=== PATIENT | female | born 2000 | race Caucasian/White ===

== ENCOUNTER 2024-04-13 13:53 | Emergency (ER) | payer SELFPAY ==
--- NOTE | ~2024-04-13 | US_ITS ---
EXAMINATION: US transvaginal DATE: 04/13/2024 17:09 INDICATION: LLQ pain, rule out torsion TECHNIQUE: Multiple transabdominal and endovaginal sonographic images of the pelvis were obtained. COMPARISON: None. FINDINGS: Uterus: 6.4 x 4.0 x 5.0 cm. Anteverted, retroflexed. Small volume fluid in the endometrial cavity. En dometrial complex measures 6 mm. Right Ovary: 5.0 x 3.4 x 2.4 cm. Ovarian volume 20.8 mL. Mild stromal echogenicity. Vascular flow is present. Multiple small peripheral follicles. Left Ovary: 4.9 x 2.3 x 2.5 cm. Ovarian volume 14.3 mL. Normal stroma. Vascular flow is present. Mult iple small peripheral follicles. There is no free fluid in the pelvis. IMPRESSION: Bilateral ovarian morphology most likely representing PCOS. Reviewed, dictated and finalized at location K. O INTERFERENCE INVESTIGATOR
[2024-04-13 13:55] VITALS: BP 149/93; PULSE 75; RESP 18; TEMP 36.4; O2SAT 100
--- NOTE | 2024-04-13 16:12 | ED_ITS ---
HPI - General Adult General Chief complaint: Unspecified Stated complaint: ovarian cyst rupture /Vomiting Time Seen by Provider: 04/13/24 16:01 Source: patient Mode of arrival: ambulatory Limitations: no limitations History of Present Illness HPI narrative: This is a 23-year-old female who presents to the ED for chief complaint of left lower abdominal pain beginning earlier today. patient reports it feels like an ovarian cyst rupture. She has history of PCOS and has had cyst rupture in the past. Reports she is still having 7/10 abdominal pain currently. Located in the left lower quadrant and does not radiate. States that she was discharged from the hospital last month after being treated patient for PID. Denies any further issues with vaginal discharge. She does state that she has had her 2nd period in 2 weeks. endorses nausea and vomiting but no diarrhea. Denies fevers, chills, Back pain, flank pain, urinary symptoms, chest pain, shortness of breath, syncope. Related Data Allergies Allergy/AdvReac Type Severity Reaction Status Date / Time sertraline [From Zoloft] AdvReac Gastrointestinal Verified 04/13/24 13:59 Upset Review of Systems Review of Systems: All systems as dictated in HPI Exam Narrative: GENERAL: Well-appearing, well-nourished, and in no acute distress. HEAD: Normocephalic, atraumatic. EYES: PERRLA and EOMI. ENT: Nares clear, no rhinorrhea or epistaxis. Mucous membranes moist. Oropharynx without tonsillar hypertrophy exudate or other lesions. NECK: Supple. No adenopathy or masses. CHEST: No respiratory distress. Clear to auscultation. No wheezes rales or rhonchi HEART: Regular rate and rhythm. No murmur heard. Normal peripheral pulses. ABDOMEN: Left lower quadrant tenderness present. Soft, nontender, nondistended, normal active bowel sounds. Negative flank tenderness bilat MSK: Normal range of motion. No edema. SKIN: Warm, dry, no rash. NEURO: Alert and oriented x4. No focal deficits. PSYCH: Normal mood and affect. Course Vital Signs Vital signs: Vital Signs Temperature 97.6 F 04/13/24 13:55 Pulse Rate 75 04/13/24 13:55 Respiratory Rate 18 04/13/24 13:55 Blood Pressure 149/93 H 04/13/24 13:55 Pulse Oximetry 100 04/13/24 13:55 Oxygen Delivery Room Air 04/13/24 13:55 Temperature 97.6 F 04/13/24 13:55 Pulse Rate 75 04/13/24 13:55 Respiratory Rate 17 04/13/24 17:16 Blood Pressure 149/93 H 04/13/24 13:55 Pulse Oximetry 100 04/13/24 17:16 Oxygen Delivery Room Air 04/13/24 13:55 Medical Decision Making MDM Narrative Medical decision making narrative: This is a 23-year-old female who presents to the ED for chief complaint of left lower quadrant abdominal pain onset this morning. Vitals are normal. Exam shows tenderness to the left lower quadrant but otherwise nontender. No flank tenderness. Lab work Shows mildly elevated white count of 11.5. CMP unremarkable. Urinalysis shows 2+ blood, 1+ leuks and 6-10 whites but clinically presentation is not consistent with UTI. Culture will be pending. History of PCOS and ovarian cyst rupture in the past. Ultrasound ordered to rule out torsion. Pelvic ultrasound: IMPRESSION: Bilateral ovarian morphology most likely representing PCOS. She improved with Zofran morphine here. Presentation consistent with ovarian cystic pain Patient will be discharged in stable condition. Supportive measures discussed and return precautions given. Patient is understanding and agreeable with plan for discharge with PCP follow-up. Vital Signs Vital Signs: Vital Signs Temperature 97.6 F 04/13/24 13:55 Pulse Rate 75 04/13/24 13:55 Respiratory Rate 18 04/13/24 13:55 Blood Pressure 149/93 H 04/13/24 13:55 Pulse Oximetry 100 04/13/24 13:55 Oxygen Delivery Room Air 04/13/24 13:55 Temperature 97.6 F 04/13/24 13:55 Pulse Rate 75 04/13/24 13:55 Respiratory Rate 17 04/13/24 17:16 Blood Pressure 149/93 H 04/13/24 13:55 Pulse Oximetry 100 04/13/24 17:16 Oxygen Delivery Room Air 04/13/24 13:55 Lab Data 04/13/24 17:26 04/13/24 17:26 Labs: Lab Results 04/13/24 Range/Units 17:26 WBC 11.5 H (4.5-10.0) K/mm3 RBC 4.35 (4.2-5.4) M/mm3 Hgb 12.4 (12.0-15.0) g/dL Hct 38.3 (37.0-47.0) % MCV 88.0 (80-100) fl MCH 28.5 (26-34) pg MCHC 32.4 (32-36) g/dl RDW 13.9 (11.5-14.5) % Plt Count 342 (150-375) k/mm3 MPV 9.4 (7.4-10.4) fl Immature Gran % (Auto) 0.3 (0-0.5) % Neut % (Auto) 59.6 (45.5-73.1) % Lymph % (Auto) 33.9 (18.3-44.2) % [place] % (Auto) 5.1 (2.6-8.5) % Eos % (Auto) 0.8 (0-4.4) % Baso % (Auto) 0.3 (0.2-1.2) % Lymph # (Auto) 3.89 H (0.9-3.2) K/mm3 [place] # (Auto) 0.6 (0.1-0.6) K/mm3 Eos # (Auto) 0.1 (0-0.3) K/mm3 Baso # (Auto) 0.0 (0.0-0.1) K/mm3 Abs Immat Gran (auto) 0.04 H (0.00-0.031) K/mm3 Absolute Neuts (auto) 6.9 H (1.3-6.7) K/mm3 Absolute Nucleated RBC 0.000 (0.0-0.012) K/mm3 Nucleated RBC % 0.0 (0.0-0.2) % Sodium 141 (137-145) mmol/L Potassium 4.0 (3.4-5.0) mmol/L Chloride 106 (98-107) mmol/L Carbon Dioxide 28 (22-30) mmol/L Anion Gap 7 (4-12) mmol/L BUN 8 (7-17) mg/dL Creatinine 0.70 (0.7-1.0) mg/dL Estim Creat Clear Calc 176 ml/min Estimated GFR > 60 (59 - ) Glucose 80 (65-110) mg/dL Calcium 9.3 (8.4-10.2) mg/dL Total Bilirubin 0.6 (0.2-1.3) mg/dL AST 25 (14-36) U/L ALT 28 (6-35) U/L Alkaline Phosphatase 82 (38-126) U/L Total Protein 8.0 (6.3-8.2) g/dL Albumin 4.4 (3.5-5.1) g/dL Lipase 44 (23-300) U/L Urine Color Yellow (Yellow) Urine Appearance Clear (Clear) Urine pH 8.0 (5.0-9.0) Ur Specific [place] 1.007 (1.001-1.035) Urine Protein Negative (Negative) mg/dL Urine Glucose (UA) Negative (Negative) mg/dL Urine Ketones Negative (Negative) mg/dL Ur Blood (Man) 2+ H (Negative) Urine Nitrate Negative (Negative) Urine Bilirubin Negative (Negative) Urine Urobilinogen 0.2 (<2.0) mg/dL Leukocyte Esterase Rfl 1+ H (Negative) ADY/UL Urine RBC 0-2 (0-2) /hpf Urine WBC 6-10 H (0-3) /hpf Ur Squamous Epith Cells Few (Few) /hpf Urine Bacteria Rare /hpf Urine Casts 0-2 Discharge Plan Discharge Clinical Impression: Abdominal pain, LLQ Patient Disposition: Home, Self-Care Condition: Stable Instructions: Antibiotic Form Additional Instructions: Exam and imaging today are reassuring. Please follow-up with your doctor as scheduled. Use regular Tylenol and ibuprofen every 4-6 hours as needed for pain control. If you have any new or worsening symptoms please return to the ER for further evaluation. Follow-up/Referrals: UNKNOWN,DOCTOR [Non-Staff] - Time of Disposition: 18:01
[2024-04-13 17:16] VITALS: RESP 17; O2SAT 100
[2024-04-13 17:38] LABS: Basophils Percent Auto 0.3 % (0.2-1.2); Eosinophils Absolute Auto 0.1 K/mm3 (0-0.3); Eosinophils Percent Auto 0.8 % (0-4.4); Hematocrit 38.3 % (37.0-47.0); Hemoglobin 12.4 g/dL (12.0-15.0); Immature Granulocyte Absolute 0.04 K/mm3 (0.00-0.031); Immature Granulocyte Percent A 0.3 % (0-0.5); Lymphocytes Absolute Auto 3.89 K/mm3 (0.9-3.2); Lymphocytes Percent Auto 33.9 % (18.3-44.2); Mean Corpuscular HGB Conc 32.4 g/dl (32-36); Mean Corpuscular Hemoglobin 28.5 pg (26-34); Mean Platelet Volume 9.4 fl (7.4-10.4); Monocytes Absolute Auto 0.6 K/mm3 (0.1-0.6); Monocytes Percent Auto 5.1 % (2.6-8.5); Neutrophils Absolute Auto 6.9 K/mm3 (1.3-6.7); Neutrophils Percent Auto 59.6 % (45.5-73.1); Platelet Count Result 342 k/mm3 (150-375); Red Blood Count 4.35 M/mm3 (4.2-5.4); Red Cell Distribution Width 13.9 % (11.5-14.5); White Blood Count 11.5 K/mm3 (4.5-10.0)
[2024-04-13 17:41] LABS: Add Urine Microscopic? YES; Appearance Urine Clear (Clear); Bacteria Urine Rare /hpf; Bilirubin Urine Negative (Negative); Blood Urine 2+ (Negative); Color Urine Yellow (Yellow); Glucose Urine UA Negative (Negative); Ketones Urine Negative (Negative); Leukocyte Esterase Ur 1+ LEU/UL (Negative); Nitrate Urine Negative (Negative); Non Pathogenic Casts 0-2; Protein Urine Negative (Negative); RBC Urine 0-2 /hpf (0-2); Specific Grav Ur 1.007 (1.001-1.035); Squamous Epithelial Cell Urine Few /hpf (Few); Urobilinogen Urine 0.2 mg/dL (<2.0)
[2024-04-13 17:47] LABS: Alanine Aminotransferase 28 U/L (6-35); Albumin Level 4.4 g/dL (3.5-5.1); Alkaline Phosphatase 82 U/L (38-126); Anion Gap 7 mmol/L (4-12); Aspartate Amino Transferase 25 U/L (14-36); Bilirubin,Total 0.6 mg/dL (0.2-1.3); Blood Urea Nitrogen 8 mg/dL (7-17); Calcium 9.3 mg/dL (8.4-10.2); Carbon Dioxide 28 mmol/L (22-30); Chloride 106 mmol/L (98-107); Estimated CRCL calculation 176 ml/min; Estimated Glomerular Filt Rate > 60; Glucose 80 mg/dL (65-110); Lipase 44 U/L (23-300); Sodium 141 mmol/L (137-145)
[2024-04-13] MEDS: ONDANSETRON INJ 4 MG/2 ML VIAL IV PUSH (17:52)
[2024-04-13] MEDS: MORPHINE SULFATE (*CRX) 4 MG/ML INJ IV PUSH (17:55)
[2024-04-13 18:08] VITALS: BP 139/81; PULSE 73; RESP 17; O2SAT 98
[2024-04-14 10:05] LABS: BEDSIDEPREGUCG Negative (Negative)
== END 2024-04-13 18:32 | disposition home or self-care (01) ==
PROVIDERS: Emergency Provider Physician Assistant
DX: R10.32 Left lower quadrant pain (principal)
CPT/HCPCS: 36415; 76830; 80053; 81001; 81025; 83690; 85025; 87086; 96374; 96375; 99284; J2270; J2405

== ENCOUNTER 2024-04-14 06:08 | Emergency (ER) | payer OTHER, SELFPAY ==
[2024-04-14] VITALS (9 sets, daily range): BP systolic 125–157; BP diastolic 75–88; PULSE 66–80; RESP 15–20; TEMP 36.4–36.6; O2SAT 97–100
--- NOTE | ~2024-04-14 | US_ITS ---
US pelvic complete w TV Ordering provider: Rick Johnson MD History: . lower ab pain, worsening, eval torsion . Comparison: April 13, 2024 Technique: Transabdominal and endovaginal ultrasound of the pelvis (Doppler ultrasound interrogation techniques used as needed for this exam.) FINDINGS: CERVIX: Normal. UTERUS: Measures 6.9x 3.4x 4.8 cm in length which is within normal limits and is retroflexed.. No my ometrial masses. ENDOMETRIUM: Normal in thickness measuring 9 mm. No endometrial masses, cysts.minimal fluid in the EM C. CUL DE SAC: No free fluid. RIGHT OVARY: Normal in size measuring 4.4x 2.6x 2.6 centimeters. Multiple follicles are seen peripher ally suggestive of polycystic ovaries. Normal echotexture. Doppler vascular flow present. LEFT OVARY: Normal in size measuring 4.1x 2.5x 2.6 cm. Multiple follicles are seen peripherally sugge stive of polycystic ovaries. Normal echotexture. Doppler vascular flow present but slower than the ot her side.. ADNEXA: Normal. No mass. IMPRESSION: Polycystic ovaries. Minimal fluid in the endometrial cavity. Slightly lower vascular flow in the left ovary compared to the right. Clinical correlation and further evaluation for torsion ovary should be considered. Otherwise, normal pelvic ultrasound. Reviewed, dictated and finalized at location A. IFIED TRAVEL COUNSELOR IMPRESSION: Polycystic ovaries. Minimal fluid in the endometrial cavity. Slightly lower vas cular flow in the left ovary compared to the right. Clinical correlation and fu rther evaluation for torsion ovary should be considered. Otherwise, normal pelv ic ultrasound.
[2024-04-14 07:03] LABS: Basophils Percent Auto 0.3 % (0.2-1.2); Eosinophils Absolute Auto 0.1 K/mm3 (0-0.3); Eosinophils Percent Auto 1.2 % (0-4.4); Hematocrit 39.9 % (37.0-47.0); Hemoglobin 12.6 g/dL (12.0-15.0); Immature Granulocyte Absolute 0.05 K/mm3 (0.00-0.031); Immature Granulocyte Percent A 0.5 % (0-0.5); Lymphocytes Absolute Auto 3.31 K/mm3 (0.9-3.2); Lymphocytes Percent Auto 30.7 % (18.3-44.2); Mean Corpuscular HGB Conc 31.6 g/dl (32-36); Mean Corpuscular Hemoglobin 28.4 pg (26-34); Mean Corpuscular Volume 90.1 fl (80-100); Mean Platelet Volume 9.6 fl (7.4-10.4); Monocytes Absolute Auto 0.8 K/mm3 (0.1-0.6); Monocytes Percent Auto 7.1 % (2.6-8.5); Neutrophils Absolute Auto 6.5 K/mm3 (1.3-6.7); Neutrophils Percent Auto 60.2 % (45.5-73.1); Platelet Count Result 330 k/mm3 (150-375); Red Blood Count 4.43 M/mm3 (4.2-5.4); Red Cell Distribution Width 13.8 % (11.5-14.5); White Blood Count 10.8 K/mm3 (4.5-10.0)
[2024-04-14 07:13] LABS: Alanine Aminotransferase 27 U/L (6-35); Albumin Level 4.2 g/dL (3.5-5.1); Alkaline Phosphatase 77 U/L (38-126); Anion Gap 9 mmol/L (4-12); Aspartate Amino Transferase 25 U/L (14-36); Bilirubin,Total 0.5 mg/dL (0.2-1.3); Blood Urea Nitrogen 12 mg/dL (7-17); Carbon Dioxide 23 mmol/L (22-30); Chloride 107 mmol/L (98-107); Estimated CRCL calculation 203 ml/min; Estimated Glomerular Filt Rate > 60; Glucose 104 mg/dL (65-110); Lipase 44 U/L (23-300); Potassium 3.8 mmol/L (3.4-5.0); Sodium 139 mmol/L (137-145)
--- NOTE | 2024-04-14 07:13 | ED_ITS ---
HPI - General Adult General Chief complaint: Abdominal Pain Stated complaint: Left sided abd/back pain, seen yesterday Time Seen by Provider: 04/14/24 06:51 History of Present Illness HPI narrative: 23-year-old female presents to the emergency department for evaluation for a low abdominal pain. patient was seen in the emergency department yesterday and diagnosed with a ruptured ovarian cyst. Patient states that her lower abdominal pain have worsened. Patient also does report associated nausea and vomiting. Related Data Allergies Allergy/AdvReac Type Severity Reaction Status Date / Time sertraline [From Zoloft] AdvReac Gastrointestinal Verified 04/14/24 06:14 Upset Review of Systems Review of Systems: All systems reviewed & are unremarkable except as noted in HPI and below Exam Narrative: APPEARANCE: Uncomfortable appearing HEAD: normocephalic, atraumatic. EYES: PERRLA/EOMI, conjunctivae clear. NOSE: Normal no drainage EARS:TMS clear with good light reflex. THROAT: Pharynx clear, no exudate. NECK: Supple. No adenopathy, no masses. RESPIRATORY: Airway patent, respirations nonlabored. Clear to auscultation bilaterally, no rales, rhonchi, wheezing. CARDIOVASCULAR: Regular rate and rhythm without murmurs rubs or gallops. ABDOMINAL: Soft, nontender, nondistended, normal bowel sounds MUSCULOSKELETAL: Moves all extremities. Strength/ROM intact, No edema, No calf tenderness. NEURO: Alert. Cranial nerves II through XII intact. Grossly intact SKIN: Warm, dry. Normal Color Course Vital Signs Vital signs: Vital Signs Temperature 97.9 F 04/14/24 06:12 Pulse Rate 77 04/14/24 06:12 Respiratory Rate 20 04/14/24 06:12 Blood Pressure 146/88 H 04/14/24 06:12 Pulse Oximetry 100 04/14/24 06:12 Oxygen Delivery Room Air 04/14/24 06:12 Temperature 97.6 F 04/14/24 09:59 Pulse Rate 80 04/14/24 09:59 Respiratory Rate 17 04/14/24 09:59 Blood Pressure 145/86 H 04/14/24 09:59 Pulse Oximetry 99 04/14/24 09:59 Oxygen Delivery Room Air 04/14/24 06:12 Medical Decision Making [facility] Narrative Medical decision making narrative: 23-year-old female history of polycystic ovarian syndrome presenting to the emergency department for complaint of persistent left lower abdominal pain. Patient was diagnosed with a ruptured ovarian cyst yesterday. Ultrasound was repeated and did show presence of blood flow but slightly decreased blood flow on the left than right. Patient does not appear to be in significant distress. Patient is from the [facility]. I consulted Dr. East and he is willing to see the patient in the morning his office. Patient does not appear to be significantly distressed. Patient is resting comfortably. Patient was comfortable the plan for discharge and close follow-up tomorrow. All questions and concerns were addressed. Patient states that she may not follow-up with . But she may be going home to [place]. Patient was strongly encouraged to follow-up with her [facility] Differential Diagnosis Differential Diagnosis: Ovarian cyst, hemorrhagic cyst, ovarian torsion, intermittent short Vital Signs Vital Signs: Vital Signs Temperature 97.9 F 04/14/24 06:12 Pulse Rate 77 04/14/24 06:12 Respiratory Rate 20 04/14/24 06:12 Blood Pressure 146/88 H 04/14/24 06:12 Pulse Oximetry 100 04/14/24 06:12 Oxygen Delivery Room Air 04/14/24 06:12 Temperature 97.6 F 04/14/24 09:59 Pulse Rate 80 04/14/24 09:59 Respiratory Rate 17 04/14/24 09:59 Blood Pressure 145/86 H 04/14/24 09:59 Pulse Oximetry 99 04/14/24 09:59 Oxygen Delivery Room Air 04/14/24 06:12 Lab Data Lab results reviewed: Yes I reviewed the patient's lab results. 04/14/24 06:55 04/14/24 06:55 Labs: Lab Results 04/14/24 04/14/24 Range/Units 06:55 07:12 WBC 10.8 H (4.5-10.0) K/mm3 RBC 4.43 (4.2-5.4) M/mm3 Hgb 12.6 (12.0-15.0) g/dL Hct 39.9 (37.0-47.0) % MCV 90.1 (80-100) fl MCH 28.4 (26-34) pg MCHC 31.6 L (32-36) g/dl RDW 13.8 (11.5-14.5) % Plt Count 330 (150-375) k/mm3 MPV 9.6 (7.4-10.4) fl Immature Gran % (Auto) 0.5 (0-0.5) % Neut % (Auto) 60.2 (45.5-73.1) % Lymph % (Auto) 30.7 (18.3-44.2) % [place] % (Auto) 7.1 (2.6-8.5) % Eos % (Auto) 1.2 (0-4.4) % Baso % (Auto) 0.3 (0.2-1.2) % Lymph # (Auto) 3.31 H (0.9-3.2) K/mm3 [place] # (Auto) 0.8 H (0.1-0.6) K/mm3 Eos # (Auto) 0.1 (0-0.3) K/mm3 Baso # (Auto) 0.0 (0.0-0.1) K/mm3 Abs Immat Gran (auto) 0.05 H (0.00-0.031) K/mm3 Absolute Neuts (auto) 6.5 (1.3-6.7) K/mm3 Absolute Nucleated RBC 0.000 (0.0-0.012) K/mm3 Nucleated RBC % 0.0 (0.0-0.2) % Sodium 139 (137-145) mmol/L Potassium 3.8 (3.4-5.0) mmol/L Chloride 107 (98-107) mmol/L Carbon Dioxide 23 (22-30) mmol/L Anion Gap 9 (4-12) mmol/L BUN 12 (7-17) mg/dL Creatinine 0.60 L (0.7-1.0) mg/dL Estim Creat Clear Calc 203 ml/min Estimated GFR > 60 (59 - ) Glucose 104 (65-110) mg/dL Calcium 9.0 (8.4-10.2) mg/dL Total Bilirubin 0.5 (0.2-1.3) mg/dL AST 25 (14-36) U/L ALT 27 (6-35) U/L Alkaline Phosphatase 77 (38-126) U/L Total Protein 7.0 (6.3-8.2) g/dL Albumin 4.2 (3.5-5.1) g/dL Lipase 44 (23-300) U/L POC Urine HCG, Qual Negative (Negative) Imaging Data Radiologist's impression: Impressions Pelvic/Transvag US 04/14/24 09:03 IMPRESSION: Polycystic ovaries. Minimal fluid in the endometrial cavity. Slightly lower vascular flow in the left ovary compared to the right. Clinical correlation and further evaluation for torsion ovary should be considered. Otherwise, normal pelvic ultrasound. Discharge Plan Discharge Clinical Impression: Abdominal pain Patient Disposition: Home, Self-Care Condition: Stable Instructions: Antibiotic Form, Abdominal Pain (ED) Additional Instructions: [place] as needed for pain control. Have close follow-up Dr. East from [facility] tomorrow morning at 8:30 a.m. at his office. If you have any worsening symptoms then please call or return to the emergency department. Prescriptions: New hydrocodone-acetaminophen 5-325 mg tablet 1 tablet PO Q12H PRN (Reason: pain) Qty: 14 0RF ondansetron 4 mg tablet,disintegrating 4 mg PO Q8H PRN (Reason: nausea and vomiting) Qty: 20 0RF Follow-up/Referrals: PHYSICIAN NOT ON STAFF,NONSTAFF [Non-Staff] -
[2024-04-14] MEDS: HYDROmorphone HCL INJ (*CRX) 1 MG/ML SYR 0.5 MG IV PUSH (07:16)
[2024-04-14] MEDS: ONDANSETRON INJ 4 MG/2 ML VIAL IV PUSH (07:20)
[2024-04-14] MEDS: METOCLOPRAMIDE HCL INJ 10 MG/2 ML VIAL IV PUSH (08:58)
[2024-04-14] MEDS: HYDROmorphone HCL INJ (*CRX) 1 MG/ML SYR IV PUSH (08:59)
[2024-04-14 10:06] LABS: BEDSIDEPREGUCG Negative (Negative)
== END 2024-04-14 10:11 | disposition home or self-care (01) ==
PROVIDERS: Emergency Medicine; Emergency Provider Emergency Medicine
DX: R10.32 Left lower quadrant pain (principal); E28.2 Polycystic ovarian syndrome
CPT/HCPCS: 36415; 76830; 76856; 80053; 81025; 83690; 85025; 96374; 96375; 96376; 99284; J1171; J2405; J2765